=== PATIENT | male | born 1955 | race Caucasian/White ===

== ENCOUNTER 2024-02-22 12:07 | Inpatient (IN) ==
--- NOTE | 2024-02-22 12:49 | DR.ABDMALE ---
HPI Time seen Time Seen by Provider: 02/22/24 12:47 PCP Primary Care Physician: Kishor Isidro Complaint Chief Complaint Doctors Comments: 68-year-old male brought in for evaluation. Has been feeling poorly over the past few weeks. Complains of difficulty with eating. Eats a bit, has abdominal bloating and fullness. Develops pressure- like pain. Has been eating/drinking less.. Per son, patient coming more confused. No reported fever, chills, URI symptoms. Has not been moving his bowels as usual, having some loose stools which are dark. No urinary complaints. 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 Had a colostomy, was reversed. Has not seen a physician in a long time. States he drinks 1 beer per day. Chief Complaint:: Pt c/o "sick for couple weeks", "can't remember nothing", drinking boost and water, dark and watery BM for a couple weeks "almost a black color", thinks he is dehydrated, not eating well d/t bloating and abdominal pain pt describes as "bloating and pressure" after eating pain is worse. Has hx of colorectal tumors w/ removal, colostomy placemnt and reversal of colostomy approx 5 years ago Self Treatment fo Chief Complaint: pepto and GasX help temporarily COVID-19 Coronavirus risk:travel/contact w/high risk person: No Has patient experienced Coronavirus symptoms: No Reviewed Nurses Notes Review: Yes Source History provided by:: Patient, son Mode of arrival Mode of Arrival: Ambulatory Timing Onset of Chief Complaint: 02/02/24 PMH PMH Past Medical History: Yes Past Medical History: Anemia Past Medical History Comment: emphysema, colon tumor Past Surgical History: Yes Surgical History: Abdominal Surgery, Bowel Resection and Other Past Surgical History Comment: cataract Family History History of Family Medical Conditions: Yes Family Medical History: Cancer and Coronary Artery Disease Social History Type of Tobacco Use: Smokeless Does any household member use tobacco: No Alcohol Use: DAILY Do you use any recreational Drugs:: No Lives With: Alone Lives Where: Home Travel Risk Coronavirus risk:travel/contact w/high risk person: No Has patient experienced Coronavirus symptoms: No Infectious screening In the last 2 months have you had wt loss of >10#?: NO Have you had fever, night sweats or hemotysis?: No Have you traveled outside the country in the last 6 months?: No Isolation: Standard ROS Review of Systems Constitutional: Malaise, Weakness and Loss of Appetite Eyes: No Symptoms Reported ENTM: No Symptoms Reported Respiratoy: No Symptoms Reported Cardiovascular: No Symptoms Reported Gastrointestinal/Abdominal: See HPI Genitourinary: No Symptoms Reported Neurological: Weakness Musculoskeletal: No Symptoms Reported Integumentary: No Symptoms Reported Hematologic/Lymphatic: No Symptoms Reported All Other Systems: Reviewed and Negative PE Vital Signs Vital Signs: Temp Pulse Resp BP Pulse Ox O2 Del Method 02/22/24 17:47 20 02/22/24 12:08 97.9 F 124 H 18 118/82 95 Room Air General General Appearance: Alert, In No Apparent Distress and Cachectic Head Head Exam: Normal Inspection, Atraumatic and Normocephalic Eyes Eye exam: PERRL and EOMI ENT ENT Exam: Normal Oropharynx, Mucous Membranes Moist and TM's Normal Bilaterally Neck Neck Exam: Normal Inspection and Full ROM; negative Tenderness Respiratory Respiratory Exam: Normal Lung Sounds Bilat; negative Accessory Muscle Use or Respiratory Distress Cardiovascular Cardiovascular Exam: Regular Rate, Normal Rhythm and Normal Heart Sounds Abdominal Exam Abdominal Exam: Normal Bowel Sounds and Soft; negative Tenderness, Guarding or Rebound Back Back Exam: Normal Inspection; negative (R) CVA Tenderness or (L) CVA Tenderness Extremeties Extremities Exam: Normal Inspection and Full ROM; negative Edema Neurologic Neurological Exam: Alert, Oriented X3 and CN II-XII Intact; negative Motor Sensory Deficit Skin Skin Exam: Warm and Dry COURSE Treatment Treatment: 60-year-old male with few weeks of abdominal discomfort with eating, having more bloating and pressure-like sensation. Appears cachectic. Is tachycardic. Workup initiated. Patient given IV fluids. 1700 -labs overall acceptable except for his potassium, is low at 2.8. PSA slightly elevated at 4.3. Chest x-ray was unremarkable. Brain CT showed atrophy, but no acute changes. CT abdomen pelvis obtained, significantly abnormal. Has severe colonic distention with a likely intraluminal mass of the rectosigmoid region extending to the lower rectum. Colonic obstruction from neoplasm is most likely etiology. Consulted with Dr. Ramon, our surgeon, coming to see the patient.. Discussed with Dr. De La Cruz, he will admit for medicine. ROR Labs Reviewed Laboratory Results Reviewed?: Yes 02/22/24 13:20 02/22/24 13:20 Laboratory: WBC 6.7 X10^3/uL (3.6-10.0) 02/22/24 13:20 RBC 5.32 X10^6/uL (4.7-6.0) 02/22/24 13:20 Hgb 15.4 g/dL (13.5-18.0) 02/22/24 13:20 Hct 47.0 % (42.0-54.0) 02/22/24 13:20 MCV 88.2 fL (80.0-100.0) 02/22/24 13:20 MCH 28.9 pg (27.0-34.0) 02/22/24 13:20 MCHC 32.7 g/dL (33.0-35.0) L 02/22/24 13:20 RDW 20.0 % (11.6-16.5) H 02/22/24 13:20 Plt Count 259 X10^3/uL (150.0-450.0) 02/22/24 13:20 MPV 7.7 fL (7.4-11.0) 02/22/24 13:20 Neut % (Auto) 74.7 % (42.0-75.0) 02/22/24 13:20 Lymph % (Auto) 16.2 % (21.0-51.0) L 02/22/24 13:20 [place] % (Auto) 7.4 % (0.0-13.0) 02/22/24 13:20 Eos % (Auto) 0.9 % (0.9-2.9) 02/22/24 13:20 Baso % (Auto) 0.8 % (0.2-1.0) 02/22/24 13:20 Neut # (Auto) 5.0 x10^3/uL (2.2-4.8) H 02/22/24 13:20 Lymph # (Auto) 1.1 X10^3/uL (1.3-2.9) L 02/22/24 13:20 [place] # (Auto) 0.5 x10^3/uL (0.3-0.8) 02/22/24 13:20 Eos # (Auto) 0.1 x10^3/uL (0.0-0.2) 02/22/24 13:20 Baso # (Auto) 0.1 X10^3/uL (0.0-0.1) 02/22/24 13:20 Absolute Nucleated RBC 0.0 /100WBC 02/22/24 13:20 Sodium 133 mmol/L (136-145) L 02/22/24 13:20 Corrected Sodium TNP 02/22/24 13:20 Potassium 2.8 mmol/L (3.5-5.1) L* 02/22/24 13:20 Chloride 94 mmol/L (98-107) L 02/22/24 13:20 Carbon Dioxide 31.5 mmol/L (21-32) 02/22/24 13:20 BUN 7 mg/dL (7-18) 02/22/24 13:20 Creatinine 0.69 mg/dL (0.70-1.30) L 02/22/24 13:20 Est GFR (MDRD) Af Amer > 60 (>60) 02/22/24 13:20 Est GFR (MDRD) Non-Af > 60 (>60) 02/22/24 13:20 Glucose 94 mg/dL (65-99) 02/22/24 13:20 Calcium 8.9 mg/dL (8.5-10.1) 02/22/24 13:20 Corrected Calcium 9.9 mg/dL (8.5-10.1) 02/22/24 13:20 Total Bilirubin 0.80 mg/dL (0.2-1.0) 02/22/24 13:20 AST 17 Units/L (15-37) 02/22/24 13:20 ALT 15 Units/L (12-78) 02/22/24 13:20 Alkaline Phosphatase 66 Units/L (46-116) 02/22/24 13:20 Ammonia < 10 umol/L (11-32) L 02/22/24 13:20 Creatine Kinase 25 Units/L (39-308) L 02/22/24 13:20 Total Protein 6.7 g/dL (6.4-8.2) 02/22/24 13:20 Albumin 2.7 g/dL (3.4-5.0) L 02/22/24 13:20 Globulin 4.0 g/dL (2.5-4.5) 02/22/24 13:20 Albumin/Globulin Ratio 0.7 Ratio (1.1-2.1) L 02/22/24 13:20 Amylase 215 Units/L (25-115) H 02/22/24 13:20 Lipase 79 Units/L (16-77) H 02/22/24 13:20 Total PSA 4.30 ng/mL (0.13-4.0) H 02/22/24 13:20 TSH 3rd Generation 2.182 uIU/mL (0.358-3.74) 02/22/24 13:20 Potassium low at 2.8 XRAY XRAY Interpreted by: Both X-ray Results: EXAM: CT ABDOMEN AND PELVIS WITH CONTRAST HISTORY: abd pain, worse with eating - IV only; COMPARISON: None. TECHNIQUE: Axial CT images were obtained through the abdomen and pelvis after the intravenous administration of contrast. Coronal reformatted images were included. Informed written consent was obtained prior to contrast administration. All CT scans at this facility use dose modulation, iterative reconstruction, and/or weight based dosing when appropriate to reduce radiation dose to as low as reasonably achievable. FINDINGS: LOWER THORAX: Within normal limits. ABDOMEN: LIVER: Right hepatic lobe atrophy GALLBLADDER: Absent SPLEEN: Within normal limits. PANCREAS: Within normal limits. KIDNEYS: Within normal limits. ADRENAL GLANDS: Within normal limits. GI TRACT: Severe colonic distention noted. Maximum diameter of the sigmoid colon is 8.4 cm. In the distal sigmoid colon, polypoid intraluminal mass is suspected which may be the etiology of the colonic obstruction measuring at least 6.7 x 6.3 cm. Soft tissue thickening and mass extends into the rectum and anal region. There is a right lower quadrant hernia containing loop of small bowel LYMPH NODES: No abnormally enlarged nodes. VESSELS: Within normal limits. PERITONEUM / RETROPERITONEUM: No free gas. PELVIS: BLADDER: Within normal limits. GENITALS: Within normal limits. BONES: Within normal limits. IMPRESSION: Severe colonic distention with large amount of colonic stool. The colon measures up to 8.4 cm maximally. Likely intraluminal mass of the rectosigmoid region extending into the lower rectum. Correlation with endoscopy is ultimately suggested. Colonic obstruction from neoplasm is the most likely etiology. THIS IS AN ELECTRONICALLY VERIFIED FINAL REPORT 02/22/2024 5:06 PM - Electronically signed by Bret Stephenson MD Opioid Opioid Risk Tool Age ([place] box if 16-45): No History of Preadolescent Sexual Abuse: No Total: 0 Total Score Risk Category: Low Risk Copyright: Yury JACKSON predicting aberrant behaviors Discharge Plan Diagnosis Discharge Problem: Colonic mass, Colonic obstruction, Acute hypokalemia Discharge Plan Patient Disposition: 09 ADMITTED INPATIENT Condition: Stable Prescriptions: No Action [facility] Concerns: Post Hospitalization: new medications and changes needed to prevent readmission or further decline. Pt educated and given instructions on all concerns. Plan of Treatment: Continue with present treatment and follow up plan. Pt is to keep follow up appointment as instructed and take medications as ordered. Orders to Discharge Patient Discharge Orders: Transfer (Routine); Ordered 02/22/24 Ordered By: Kelvin Montague Follow ups/Referrals Follow ups/Referrals: [facility],None [Primary Care Provider] - 3 days
--- NOTE | 2024-02-22 13:24 | CT ---
EXAMINATION: BRAIN W/O CON HISTORY: CONFUSION ; COMPARISON: None. TECHNIQUE: Contiguous noncontrast axial CT images of the brain. Images are reviewed in the axial imaging plane with reformatted sagittal and coronal images.The above CT scan was done with automated exposure contr ol and the mA and kV was adjusted to obtain quality images according to patient size. FINDINGS: No evidence of acute intracranial hemorrhage, mass effect, or midline shift. Generalized decreased d ensity to the deep white matter adjacent to the lateral ventricles and centrum semiovale regions bila terally without associated mass effect. Consider chronic ischemic white matter changes from small ve ssel disease or other cause of gliosis. Moderate diffuse brain parenchyma atrophy. Ventricles ana l size and shape. Calvarium appears intact. IMPRESSION: Probable chronic brain parenchymal changes as described above. Recommend further evaluation with an MRI of the brain if this is of continued clinical concern. THIS IS AN ELECTRONICALLY VERIFIED FINAL REPORT 02/22/2024 1:21 PM - Electronically signed by Melissa Hanson MD
[2024-02-22] MEDS: NS 1,000 ML IV 1,000 ML IV ONE (13:31)
[2024-02-22 13:32] LABS: BASOPHILS # (AUTO) 0.1 X10^3/uL (0.0-0.1); BASOPHILS % (AUTO) 0.8 % (0.2-1.0); EOSINOPHILS # (AUTO) 0.1 x10^3/uL (0.0-0.2); EOSINOPHILS % (AUTO) 0.9 % (0.9-2.9); HEMOGLOBIN 15.4 g/dL (13.5-18.0); LYMPHOCYTES # (AUTO) 1.1 X10^3/uL (1.3-2.9); LYMPHOCYTES % (AUTO) 16.2 % (21.0-51.0); MEAN CORPUSCULAR HEMOGLOBIN 28.9 pg (27.0-34.0); MEAN CORPUSCULAR HGB CONC 32.7 g/dL (33.0-35.0); MEAN CORPUSCULAR VOLUME 88.2 fL (80.0-100.0); MEAN PLATELET VOLUME 7.7 fL (7.4-11.0); MONOCYTES # (AUTO) 0.5 x10^3/uL (0.3-0.8); MONOCYTES % (AUTO) 7.4 % (0.0-13.0); NEUTROPHILS % (AUTO) 74.7 % (42.0-75.0); PLATELET COUNT 259 X10^3/uL (150.0-450.0); RED BLOOD COUNT 5.32 X10^6/uL (4.7-6.0); WHITE BLOOD COUNT 6.7 X10^3/uL (3.6-10.0)
[2024-02-22 13:59] LABS: AMMONIA < 10 umol/L (11-32)
[2024-02-22 14:06] LABS: ALANINE AMINOTRANSFERASE 15 Units/L (12-78); ALBUMIN 2.7 g/dL (3.4-5.0); ALKALINE PHOSPHATASE 66 Units/L (46-116); AMYLASE 215 Units/L (25-115); ASPARTATE AMINO TRANSFERASE 17 Units/L (15-37); BLOOD UREA NITROGEN 7 mg/dL (7-18); CALCIUM 8.9 mg/dL (8.5-10.1); CARBON DIOXIDE 31.5 mmol/L (21-32); CHLORIDE 94 mmol/L (98-107); COR CA(FOR HYPOALB) 9.9 mg/dL (8.5-10.1); CREATINE KINASE 25 Units/L (39-308); CREATININE 0.69 mg/dL (0.70-1.30); GLUCOSE 94 mg/dL (65-99); LIPASE 79 Units/L (16-77); SODIUM 133 mmol/L (136-145); TOTAL PROTEIN 6.7 g/dL (6.4-8.2); TSH (3RD GENERATION) 2.182 uIU/mL (0.358-3.74); eGFR NON BLACK RACES > 60 (>60)
[2024-02-22 14:16] LABS: POTASSIUM 2.8 mmol/L (3.5-5.1)
--- NOTE | 2024-02-22 14:36 | RAD ---
EXAM:CHEST, 1 VIEWHISTORY:ABD PAIN ;COMPARISON:No relevant prior studies were available for comparison at the time of interpretation.TECHNIQUE:CHEST, 1 VIEWFINDINGS:Chest:Lines and tubes: NoneMediastinum: Cardiac and mediastinal shadow is within normal limits for size and contour.Pulmonary vessels: No pulmonary vascular congestion.Lung logan: No suspicious airspace opacity.Pleura: No effusion. No pneumothorax.Bones and soft tissues: No acute osseous or soft tissue abnormality.IMPRESSION:1. No acute cardiopulmonary abnormalityTHIS IS AN ELECTRONICALLY VERIFIED FINAL REPORT02/22/2024 2:33 PM - Electronically signed by Kishor Lowry MD
[2024-02-22] MEDS: K-RIDER 10 MEQ/100 ML WATER 10 MEQ/100 ML BAG IV ONE (15:15)
--- NOTE | 2024-02-22 17:18 | CT ---
EXAM:CT ABDOMEN AND PELVIS WITH CONTRASTHISTORY:abd pain, worse with eating - IV only;COMPARISON:None.TECHNIQUE:Axial CT images were obtained through the abdomen and pelvis after the intravenous administration of contrast. Coronal reformatted images were included.Informed written consent was obtained prior to contrast administration.All CT scans at this facility use dose modulation, iterative reconstruction, and/or weight based dosing when appropriate to reduce radiation dose to as low as reasonably achievable.FINDINGS:LOWER THORAX: Within normal limits.ABDOMEN:LIVER: Right hepatic lobe atrophyGALLBLADDER: AbsentSPLEEN: Within normal limits.PANCREAS: Within normal limits.KIDNEYS: Within normal limits.ADRENAL GLANDS: Within normal limits.GI TRACT: Severe colonic distention noted. Maximum diameter of the sigmoid colon is 8.4 cm. In the distal sigmoid colon, polypoid intraluminal mass is suspected which may be the etiology of the colonic obstruction measuring at least 6.7 x 6.3 cm. Soft tissue thickening and mass extends into the rectum and anal region. There is a right lower quadrant hernia containing loop of small bowelLYMPH NODES: No abnormally enlarged nodes.VESSELS: Within normal limits.PERITONEUM / RETROPERITONEUM: No free gas.PELVIS:BLADDER: Within normal limits.GENITALS: Within normal limits.BONES: Within normal limits.IMPRESSION:Severe colonic distention with large amount of colonic stool. The colon measures up to 8.4 cm maximally. Likely intraluminal mass of the rectosigmoid region extending into the lower rectum. Correlation with endoscopy is ultimately suggested. Colonic obstruction from neoplasm is the most likely etiology.THIS IS AN ELECTRONICALLY VERIFIED FINAL REPORT02/22/2024 5:06 PM - Electronically signed by Bret Stephenson MD
[2024-02-22] MEDS: D5 1/2 NS + KCL 20 MEQ/L 1,000 ML IV SCH (20:19)
[2024-02-22] MEDS: OMNIPAQUE 350 mg/mL 100 mL BTL 100 ML ONE (22:03)
[2024-02-22] MEDS: POTASSIUM CHLORIDE IV SCH (22:03)
[2024-02-22] MEDS: SODIUM CHLORIDE IV SCH (22:03)
[2024-02-22] MEDS: DEXTROSE IV SCH (22:03)
[2024-02-22] MEDS: CONSULT PHARMACY - POTASSIUM & MAGNESIUM XX SCH (22:04)
[2024-02-22 22:23] LABS: BILIRUBIN,URINE NEGATIVE (NEGATIVE); BLOOD/HEMOGLOBIN,URINE NEGATIVE (NEGATIVE); GLUCOSE, URINE NEGATIVE (NEGATIVE); KETONES,URINE 3+ (NEGATIVE); LEUKOCYTE ESTERASE ,URINE NEGATIVE (NEGATIVE); NITRITES,URINE NEGATIVE (NEGATIVE); PH,URINE 6.5 (5.0 - 8.0); PROTEIN,URINE 1+ (NEGATIVE); UROBILINOGEN,URINE NORMAL (NORMAL)
[2024-02-22 22:26] LABS: APPEARANCE,URINE CLEAR (CLEAR); COLOR,URINE YELLOW (YELLOW)
[2024-02-22 22:30] LABS: BACTERIA,URINE TRACE /HPF (NEGATIVE); SQUAMOUS EPITHELIAL CELL,UR RARE /HPF (NEGATIVE)
[2024-02-23 05:14] LABS: BASOPHILS # (AUTO) 0.1 X10^3/uL (0.0-0.1); BASOPHILS % (AUTO) 0.8 % (0.2-1.0); EOSINOPHILS # (AUTO) 0.1 x10^3/uL (0.0-0.2); EOSINOPHILS % (AUTO) 1.9 % (0.9-2.9); HEMATOCRIT 40.8 % (42.0-54.0); HEMOGLOBIN 13.8 g/dL (13.5-18.0); LYMPHOCYTES # (AUTO) 1.5 X10^3/uL (1.3-2.9); LYMPHOCYTES % (AUTO) 23.9 % (21.0-51.0); MEAN CORPUSCULAR HEMOGLOBIN 29.4 pg (27.0-34.0); MEAN CORPUSCULAR HGB CONC 33.9 g/dL (33.0-35.0); MEAN CORPUSCULAR VOLUME 86.7 fL (80.0-100.0); MEAN PLATELET VOLUME 8.3 fL (7.4-11.0); MONOCYTES # (AUTO) 0.6 x10^3/uL (0.3-0.8); NEUTROPHILS # (AUTO) 4.1 x10^3/uL (2.2-4.8); NEUTROPHILS % (AUTO) 64.4 % (42.0-75.0); PLATELET COUNT 244 X10^3/uL (150.0-450.0); RED BLOOD COUNT 4.71 X10^6/uL (4.7-6.0); RED CELL DISTRIBUTION WIDTH 20.1 % (11.6-16.5); WHITE BLOOD COUNT 6.3 X10^3/uL (3.6-10.0)
[2024-02-23 05:27] LABS: ALANINE AMINOTRANSFERASE 14 Units/L (12-78); ALBUMIN 2.2 g/dL (3.4-5.0); ALKALINE PHOSPHATASE 56 Units/L (46-116); ASPARTATE AMINO TRANSFERASE 15 Units/L (15-37); BLOOD UREA NITROGEN 5 mg/dL (7-18); CALCIUM 8.3 mg/dL (8.5-10.1); CARBON DIOXIDE 26.6 mmol/L (21-32); CHLORIDE 98 mmol/L (98-107); COR CA(FOR HYPOALB) 9.7 mg/dL (8.5-10.1); CREATININE 0.54 mg/dL (0.70-1.30); GLUCOSE 102 mg/dL (65-99); SODIUM 133 mmol/L (136-145); TOTAL PROTEIN 5.7 g/dL (6.4-8.2); eGFR NON BLACK RACES > 60 (>60)
[2024-02-23 05:31] LABS: POTASSIUM 2.9 mmol/L (3.5-5.1)
[2024-02-23 05:54] LABS: ANISOCYTOSIS 1+; PLATELET MORPHOLOGY COMMENT NORMAL (NORMAL)
[2024-02-23] MEDS ORDERED: K-RIDER 10 MEQ/100 ML WATER 10 MEQ/100 ML BAG IV SCH (08:00)
[2024-02-23] MEDS ORDERED: MAGNESIUM SULFATE 1 GRAM/100 mL PREMIX 1 G/100 ML BAG IV SCH ×2 (09:00→10:00)
[2024-02-23] MEDS: K-DUR TAB 20 MEQ PO SCH (09:25)
[2024-02-23] MEDS: LOVENOX INJ 40 MG SYR SC SCH (09:26)
[2024-02-23] MEDS: NS + KCL 40 MEQ/L 1,000 ML with MAGNESIUM SULFATE 50% INJ VIAL 2 G IV SCH (09:26)
[2024-02-23] MEDS: MAGNESIUM SULFATE 1 GRAM/100 mL PREMIX 1 G/100 ML BAG IV SCH (10:02)
[2024-02-23] MEDS: FLEET ENEMA ADULT PR ONE (11:19)
[2024-02-23] MEDS: LR 1,000 ML IV 1,000 ML IV ONE (14:13)
[2024-02-23] MEDS: DIPRIVAN VIAL 20 ML ONE (14:22)
--- NOTE | 2024-02-23 16:45 | RAD ---
EXAM:KUB x-ray one viewHISTORY:ABDOMINAL DISTENTION -COMPARISON:CT 02/22/2024FINDINGS:Diffuse gaseous dilation of small and large bowel loops is unchanged. This is probably from obstructing mass in the rectum seen on the CT. Excreted contrast is seen in the urinary bladder.IMPRESSION:Diffuse small and large bowel dilation is probably due to obstruction from mass in the rectum.THIS IS AN ELECTRONICALLY VERIFIED FINAL REPORT02/23/2024 4:42 PM - Electronically signed by Darius Finch MD
[2024-02-24] MEDS: CONSULT PHARMACY - POTASSIUM & MAGNESIUM XX SCH (01:16)
[2024-02-24] MEDS: MAGNESIUM SULFATE 1 GRAM/100 mL PREMIX 1 G/100 ML BAG IV SCH (01:16)
[2024-02-24] MEDS ORDERED: ZOFRAN INJ 4 MG VIAL IVP PRN ×2 (02:21→11:06)
[2024-02-24 05:08] LABS: ALANINE AMINOTRANSFERASE 16 Units/L (12-78); ALBUMIN 2.3 g/dL (3.4-5.0); ALKALINE PHOSPHATASE 64 Units/L (46-116); ASPARTATE AMINO TRANSFERASE 19 Units/L (15-37); BLOOD UREA NITROGEN 7 mg/dL (7-18); CARBON DIOXIDE 26.7 mmol/L (21-32); CHLORIDE 102 mmol/L (98-107); COR CA(FOR HYPOALB) 9.4 mg/dL (8.5-10.1); CREATININE 0.63 mg/dL (0.70-1.30); GLUCOSE 90 mg/dL (65-99); MAGNESIUM 2.6 mg/dL (2.0-2.9); POTASSIUM 4.7 mmol/L (3.5-5.1); SODIUM 135 mmol/L (136-145); TOTAL PROTEIN 6.1 g/dL (6.4-8.2); eGFR NON BLACK RACES > 60 (>60)
[2024-02-24 05:40] LABS: HEMOGLOBIN 15.1 g/dL (13.5-18.0); MEAN PLATELET VOLUME 8.6 fL (7.4-11.0); RED CELL DISTRIBUTION WIDTH 20.4 % (11.6-16.5); WHITE BLOOD COUNT 4.3 X10^3/uL (3.6-10.0)
[2024-02-24 05:46] LABS: BASOPHILS % (AUTO) 0.3 % (0.2-1.0); EOSINOPHILS % (AUTO) 0.4 % (0.9-2.9); HEMATOCRIT 45.9 % (42.0-54.0); LYMPHOCYTES # (AUTO) 1.2 X10^3/uL (1.3-2.9); LYMPHOCYTES % (AUTO) 27.4 % (21.0-51.0); MEAN CORPUSCULAR HEMOGLOBIN 29.1 pg (27.0-34.0); MEAN CORPUSCULAR HGB CONC 32.9 g/dL (33.0-35.0); MEAN CORPUSCULAR VOLUME 88.6 fL (80.0-100.0); MONOCYTES # (AUTO) 0.4 x10^3/uL (0.3-0.8); MONOCYTES % (AUTO) 10.3 % (0.0-13.0); NEUTROPHILS # (AUTO) 2.7 x10^3/uL (2.2-4.8); NEUTROPHILS % (AUTO) 61.6 % (42.0-75.0); PLATELET COUNT 289 X10^3/uL (150.0-450.0); RED BLOOD COUNT 5.18 X10^6/uL (4.7-6.0)
[2024-02-24 06:37] LABS: ANISOCYTOSIS 1+; PLATELET MORPHOLOGY COMMENT NORMAL (NORMAL)
--- NOTE | 2024-02-24 08:47 | RAD ---
EXAMINATION: KUB HISTORY: bowel obstruction; . COMPARISON STUDY: KUB 02/23/2024 TECHNIQUE: Single supine AP view of the abdomen and pelvis FINDINGS: Marked gaseous distention of the colon as has been previously described. The visualized soft tissue outlines and osseous structures appear intact. IMPRESSION: Persistent marked gaseous distention of the colon THIS IS AN ELECTRONICALLY VERIFIED FINAL REPORT 02/24/2024 8:44 AM - Electronically signed by Melissa Hanson MD
[2024-02-24] MEDS: ZEMURON 100 MG VIAL ONE (09:26)
[2024-02-24] MEDS: DECADRON INJ ONE (09:26)
[2024-02-24] MEDS: PEPCID 20 MG VIAL ONE (09:26)
[2024-02-24] MEDS: AMIDATE INJ 40 MG VIAL ONE (09:26)
[2024-02-24] MEDS: BRIDION ONE (09:26)
[2024-02-24] MEDS: ZOFRAN INJ 4 MG VIAL ONE (09:26)
[2024-02-24] MEDS: DIPRIVAN VIAL 20 ML ONE (09:26)
[2024-02-24] MEDS: NS 100 ML IV 100 ML ONE (09:32)
[2024-02-24] MEDS: LR 1,000 ML IV 1,000 ML IV ONE (09:32)
[2024-02-24] MEDS: NOZIN NASAL SANITIZER TP ONE (09:32)
--- NOTE | 2024-02-24 09:35 | EKG ---
Test Reason : pt in pacu Blood Pressure : */* mmHG Vent. Rate : 100 BPM Atrial Rate : 100 BPM P-R Int : 132 ms QRS Dur : 74 ms QT Int : 370 ms P-R-T Axes : 68 54 32 degrees QTc Int : 477 ms Normal sinus rhythm Septal infarct , age undetermined Abnormal ECG No previous ECGs available Confirmed by Boris Esquivel MD ([id number]) on 02/25/2024 8:14:31 AM Referred By: Confirmed By: Boris Esquivel MD
[2024-02-24] MEDS: FENTANYL VIAL INJ 100 mcg ONE (09:36)
[2024-02-24] MEDS: VERSED ONE (09:36)
[2024-02-24] MEDS: POLYMYXIN B SULFATE ONE (09:43)
[2024-02-24] MEDS: ANCEF VIAL 1 GRAM ONE (09:45)
[2024-02-24] MEDS ORDERED: ULTANE GAS IN ONE (09:56)
[2024-02-24] MEDS ORDERED: XYLOCAINE 2 % (PLAIN) ONE (09:56)
[2024-02-24] MEDS: KETAMINE HCL ONE (10:07)
[2024-02-24] MEDS: NEO-SYNEPHRINE INJ ONE (10:15)
[2024-02-24] MEDS: BREVIBLOC ONE (10:47)
[2024-02-24] MEDS ORDERED: BENADRYL INJ 50 MG VIAL IVP PRN (11:06)
[2024-02-24] MEDS ORDERED: DILAUDID INJ IVP PRN ×2 (11:06→12:04)
[2024-02-24] MEDS: HESPAN IV IN NS 500 ML IV ONE (11:07)
[2024-02-24 12:43] VITALS: BMI 16.6
--- NOTE | 2024-02-24 12:44 | PCM.PROG ---
Progress Note Progress Note for Day of Date of Exam: 02/24/24 Subjective Subjective: Patient is a 68-year-old male admitted for large bowel obstruction with mass in the rectosigmoid. This morning he is getting ready for surgery. No acute events overnight. Labs/imaging: WBC 4.3, hemoglobin 15.1, platelets 289, sodium 135, potassium 2.94.7, creatinine 0.63, glucose 90, CEA pending,. Will keep patient NPO. Replete electrolytes per protocol. Plan for surgery today. Otherwise continue current treatment plan. Continue closely monitor and follow-up labs/imaging. Past Medical Family Social History Past Med/Fam/Surg Hx: No changes since H&P Allergies: Allergies No Known Drug Allergies Allergy (Verified 02/22/24 17:09) Review of Systems ROS changes noted: see HPI Vital Signs and I&O's Vital Signs: Vital Signs Temperature 97 F Pulse Rate 92 Pulse Rate 92 Pulse Rate 92 Pulse Rate 87 Pulse Rate 100 Pulse Rate 93 Pulse Rate 97 Pulse Rate 103 Pulse Rate 97 Pulse Rate 100 Pulse Rate 99 Pulse Rate 100 Pulse Rate 100 Pulse Rate 106 Pulse Rate 114 Pulse Rate 103 Pulse Rate 101 Pulse Rate 108 Pulse Rate 100 Pulse Rate 100 Pulse Rate 99 Respiratory Rate 16 Respiratory Rate 17 Respiratory Rate 18 Respiratory Rate 18 Respiratory Rate 18 Respiratory Rate 16 Respiratory Rate 16 Respiratory Rate 24 Respiratory Rate 16 Respiratory Rate 17 Respiratory Rate 17 Respiratory Rate 17 Respiratory Rate 17 Respiratory Rate 27 Respiratory Rate 59 Respiratory Rate 21 Respiratory Rate 18 Respiratory Rate 23 Respiratory Rate 17 Respiratory Rate 18 Respiratory Rate 19 Blood Pressure 137/79 Blood Pressure 138/80 Blood Pressure 137/79 Blood Pressure 138/79 Blood Pressure 131/76 Blood Pressure 131/79 Blood Pressure 140/75 O2 Sat by Pulse Oximetry 99 O2 Sat by Pulse Oximetry 99 O2 Sat by Pulse Oximetry 100 O2 Sat by Pulse Oximetry 100 O2 Sat by Pulse Oximetry 100 O2 Sat by Pulse Oximetry 100 O2 Sat by Pulse Oximetry 100 O2 Sat by Pulse Oximetry 97 O2 Sat by Pulse Oximetry 96 O2 Sat by Pulse Oximetry 96 O2 Sat by Pulse Oximetry 95 O2 Sat by Pulse Oximetry 96 O2 Sat by Pulse Oximetry 96 O2 Sat by Pulse Oximetry 97 O2 Sat by Pulse Oximetry 95 O2 Sat by Pulse Oximetry 96 O2 Sat by Pulse Oximetry 95 O2 Sat by Pulse Oximetry 96 O2 Sat by Pulse Oximetry 96 O2 Sat by Pulse Oximetry 96 O2 Sat by Pulse Oximetry 96 Intake and Output: Intake & Output 02/21/24 02/22/24 02/23/24 02/24/24 23:59 23:59 23:59 23:59 Intake Total 1293 / 1293 2653 / 2653 4561 / 4561 Output Total 300 / 300 750 / 750 2409 / 2409 Balance 993 / 993 1903 / 1903 2152 / 2152 Physical Exam Oriented: Normal Respiratory: Normal Cardiovascular: Normal Auscultation: Bowel Sounds: Normal Tenderness: RLQ and LLQ Skin: Normal Musculoskeletal: Normal Mood Description: Calm Speech Pattern: Clear Laboratory and Diagnostics 02/24/24 04:01 02/24/24 04:01 Labs: Laboratory WBC 4.3 X10^3/uL (3.6-10.0) 02/24/24 04:01 RBC 5.18 X10^6/uL (4.7-6.0) 02/24/24 04:01 Hgb 15.1 g/dL (13.5-18.0) 02/24/24 04:01 Hct 45.9 % (42.0-54.0) 02/24/24 04:01 MCV 88.6 fL (80.0-100.0) 02/24/24 04:01 MCH 29.1 pg (27.0-34.0) 02/24/24 04:01 MCHC 32.9 g/dL (33.0-35.0) L 02/24/24 04:01 RDW 20.4 % (11.6-16.5) H 02/24/24 04:01 Plt Count 289 X10^3/uL (150.0-450.0) 02/24/24 04:01 Plt Count Comment Adequate (ADEQUATE) 02/24/24 04:01 MPV 8.6 fL (7.4-11.0) 02/24/24 04:01 Neut % (Auto) 61.6 % (42.0-75.0) 02/24/24 04:01 Lymph % (Auto) 27.4 % (21.0-51.0) 02/24/24 04:01 [place] % (Auto) 10.3 % (0.0-13.0) 02/24/24 04:01 Eos % (Auto) 0.4 % (0.9-2.9) L 02/24/24 04:01 Baso % (Auto) 0.3 % (0.2-1.0) 02/24/24 04:01 Neut # (Auto) 2.7 x10^3/uL (2.2-4.8) 02/24/24 04:01 Lymph # (Auto) 1.2 X10^3/uL (1.3-2.9) L 02/24/24 04:01 [place] # (Auto) 0.4 x10^3/uL (0.3-0.8) 02/24/24 04:01 Eos # (Auto) 0.0 x10^3/uL (0.0-0.2) 02/24/24 04:01 Baso # (Auto) 0.0 X10^3/uL (0.0-0.1) 02/24/24 04:01 Absolute Nucleated RBC 0.1 /100WBC 02/24/24 04:01 Plt Morphology Comment Normal (NORMAL) 02/24/24 04:01 RBC Morphology Abnormal (NORMAL) 02/24/24 04:01 Anisocytosis 1+ A 02/24/24 04:01 Sodium 135 mmol/L (136-145) L 02/24/24 04:01 Corrected Sodium TNP 02/24/24 04:01 Potassium 4.7 mmol/L (3.5-5.1) 02/24/24 04:01 Chloride 102 mmol/L (98-107) 02/24/24 04:01 Carbon Dioxide 26.7 mmol/L (21-32) 02/24/24 04:01 BUN 7 mg/dL (7-18) 02/24/24 04:01 Creatinine 0.63 mg/dL (0.70-1.30) L 02/24/24 04:01 Est GFR (MDRD) Af Amer > 60 (>60) 02/24/24 04:01 Est GFR (MDRD) Non-Af > 60 (>60) 02/24/24 04:01 Glucose 90 mg/dL (65-99) 02/24/24 04:01 Calcium 8.0 mg/dL (8.5-10.1) L 02/24/24 04:01 Corrected Calcium 9.4 mg/dL (8.5-10.1) 02/24/24 04:01 Magnesium 2.6 mg/dL (2.0-2.9) 02/24/24 04:01 Total Bilirubin 0.70 mg/dL (0.2-1.0) 02/24/24 04:01 AST 19 Units/L (15-37) 02/24/24 04:01 ALT 16 Units/L (12-78) 02/24/24 04:01 Alkaline Phosphatase 64 Units/L (46-116) 02/24/24 04:01 Ammonia < 10 umol/L (11-32) L 02/22/24 13:20 Creatine Kinase 25 Units/L (39-308) L 02/22/24 13:20 Total Protein 6.1 g/dL (6.4-8.2) L 02/24/24 04:01 Albumin 2.3 g/dL (3.4-5.0) L 02/24/24 04:01 Globulin 3.8 g/dL (2.5-4.5) 02/24/24 04:01 Albumin/Globulin Ratio 0.6 Ratio (1.1-2.1) L 02/24/24 04:01 Amylase 215 Units/L (25-115) H 02/22/24 13:20 Lipase 79 Units/L (16-77) H 02/22/24 13:20 Total PSA 4.30 ng/mL (0.13-4.0) H 02/22/24 13:20 TSH 3rd Generation 2.182 uIU/mL (0.358-3.74) 02/22/24 13:20 Specimen Type Clean catch urine 02/22/24 22:11 Urine Color Yellow (YELLOW) 02/22/24 22:11 Urine Appearance Clear (CLEAR) 02/22/24 22:11 Urine pH 6.5 (5.0 - 8.0) 02/22/24 22:11 Ur Specific [place] 1.010 (1.000-1.030) 02/22/24 22:11 Urine Protein 1+ (NEGATIVE) 02/22/24 22:11 Urine Glucose (UA) Negative (NEGATIVE) 02/22/24 22:11 Urine Ketones 3+ (NEGATIVE) 02/22/24 22:11 Urine Blood Negative (NEGATIVE) 02/22/24 22:11 Urine Nitrite Negative (NEGATIVE) 02/22/24 22:11 Urine Bilirubin Negative (NEGATIVE) 02/22/24 22:11 Urine Urobilinogen Normal (NORMAL) 02/22/24 22:11 Ur Leukocyte Esterase Negative (NEGATIVE) 02/22/24 22:11 Urine RBC 3-5 /HPF (0-3) A 02/22/24 22:11 Urine WBC 0-2 /HPF (0-5) 02/22/24 22:11 Ur Squamous Epith Cells Rare /HPF (NEGATIVE) 02/22/24 22:11 Amorphous Sediment Trace /HPF (NEGATIVE) 02/22/24 22:11 Urine Bacteria Trace /HPF (NEGATIVE) 02/22/24 22:11 Ur Culture Indicated? No/not indicated 02/22/24 22:11 Plan (1) Colonic mass: Status: Acute (2) Colonic obstruction: Status: Acute (3) Acute hypokalemia: Status: Acute
[2024-02-24] MEDS: D5 1/2 NS 1,000 ML 1,000 ML IV SCH (13:11)
[2024-02-24] MEDS ORDERED: NS IRRIGATION* 1,000 ML IR ONE (13:51)
[2024-02-25 05:04] LABS: BASOPHILS % (AUTO) 0.3 % (0.2-1.0); HEMOGLOBIN 12.4 g/dL (13.5-18.0); LYMPHOCYTES # (AUTO) 1.5 X10^3/uL (1.3-2.9); LYMPHOCYTES % (AUTO) 21.5 % (21.0-51.0); MEAN CORPUSCULAR HEMOGLOBIN 29.2 pg (27.0-34.0); MEAN CORPUSCULAR HGB CONC 33.7 g/dL (33.0-35.0); MEAN CORPUSCULAR VOLUME 86.6 fL (80.0-100.0); MEAN PLATELET VOLUME 8.2 fL (7.4-11.0); MONOCYTES # (AUTO) 0.6 x10^3/uL (0.3-0.8); MONOCYTES % (AUTO) 8.6 % (0.0-13.0); NEUTROPHILS # (AUTO) 4.9 x10^3/uL (2.2-4.8); NEUTROPHILS % (AUTO) 69.6 % (42.0-75.0); PLATELET COUNT 231 X10^3/uL (150.0-450.0); RED BLOOD COUNT 4.27 X10^6/uL (4.7-6.0); RED CELL DISTRIBUTION WIDTH 20.4 % (11.6-16.5); WHITE BLOOD COUNT 7.1 X10^3/uL (3.6-10.0)
[2024-02-25 05:15] LABS: ALANINE AMINOTRANSFERASE 11 Units/L (12-78); ALBUMIN 1.6 g/dL (3.4-5.0); ALKALINE PHOSPHATASE 48 Units/L (46-116); ASPARTATE AMINO TRANSFERASE 13 Units/L (15-37); BLOOD UREA NITROGEN 5 mg/dL (7-18); CALCIUM 7.3 mg/dL (8.5-10.1); CARBON DIOXIDE 28.5 mmol/L (21-32); CHLORIDE 101 mmol/L (98-107); COR CA(FOR HYPOALB) 9.2 mg/dL (8.5-10.1); COR NA(FOR HYPERGLY) 134 mmol/L (136-145); CREATININE 0.55 mg/dL (0.70-1.30); GLUCOSE 132 mg/dL (65-99); SODIUM 133 mmol/L (136-145); TOTAL PROTEIN 4.4 g/dL (6.4-8.2); eGFR NON BLACK RACES > 60 (>60)
[2024-02-25 05:18] LABS: POTASSIUM 2.7 mmol/L (3.5-5.1)
[2024-02-25] MEDS ORDERED: CONSULT PHARMACY - POTASSIUM & MAGNESIUM XX SCH (06:00)
[2024-02-25 06:21] LABS: ANISOCYTOSIS 1+; PLATELET MORPHOLOGY COMMENT NORMAL (NORMAL)
[2024-02-25] MEDS ORDERED: K-DUR TAB 20 MEQ PO SCH (09:00)
[2024-02-25] MEDS ORDERED: MAG-OX TAB PO SCH (09:00)
[2024-02-25] MEDS: NS + KCL 40 MEQ/L 1,000 ML with MAGNESIUM SULFATE 50% INJ VIAL 2 G IV SCH (10:15)
--- NOTE | 2024-02-25 10:18 | DR.PROGNOT ---
HOSPITAL PROGRESS NOTE Progress Note for Day of: Progress Note Date: 02/25/24 Chief Complaint Chief Complaint: Status post transverse colostomy which is functioning well today. Moderate abdominal pain around the incision, no nausea or vomiting. Potassium is 2.7, magnesium 1.4 and albumin 1.6. To start him on clear liquid, ambulate, DC Wick catheter and correct electrolyt e imbalance. Lovenox and same incentive spirometer. Awaiting final pathology report but patient could be discharged and have the home visiting nurse to help with his new colostomy care. Past Medical Family Social History Past Med/Fam/Surg Hx: No changes since H&P Allergies: Allergies No Known Drug Allergies Allergy (Verified 02/22/24 17:09) Review Of Systems Changes in ROS: see HPI Vital Signs Vital Signs: Vital Signs Temperature 97.9 F Pulse Rate 81 Respiratory Rate 23 Blood Pressure 107/56 O2 Sat by Pulse Oximetry 97 Physical Exam Oriented: Normal Respiratory: Normal Cardiovascular: Normal GI:Auscultation: Normal GI: Tenderness: RLQ and LLQ Skin: Normal Musculoskeletal: Normal Mood Description: Calm Speech Pattern: Clear Laboratory and Diagnostics 02/25/24 04:23 02/25/24 04:23 Labs: Laboratory WBC 7.1 X10^3/uL (3.6-10.0) 02/25/24 04:23 RBC 4.27 X10^6/uL (4.7-6.0) L 02/25/24 04:23 Hgb 12.4 g/dL (13.5-18.0) L D 02/25/24 04:23 Hct 37.0 % (42.0-54.0) L 02/25/24 04:23 MCV 86.6 fL (80.0-100.0) 02/25/24 04:23 MCH 29.2 pg (27.0-34.0) 02/25/24 04:23 MCHC 33.7 g/dL (33.0-35.0) 02/25/24 04:23 RDW 20.4 % (11.6-16.5) H 02/25/24 04:23 Plt Count 231 X10^3/uL (150.0-450.0) 02/25/24 04:23 Plt Count Comment Adequate (ADEQUATE) 02/25/24 04:23 MPV 8.2 fL (7.4-11.0) 02/25/24 04:23 Neut % (Auto) 69.6 % (42.0-75.0) 02/25/24 04:23 Lymph % (Auto) 21.5 % (21.0-51.0) 02/25/24 04:23 [place] % (Auto) 8.6 % (0.0-13.0) 02/25/24 04:23 Eos % (Auto) 0.0 % (0.9-2.9) L 02/25/24 04:23 Baso % (Auto) 0.3 % (0.2-1.0) 02/25/24 04:23 Neut # (Auto) 4.9 x10^3/uL (2.2-4.8) H 02/25/24 04:23 Lymph # (Auto) 1.5 X10^3/uL (1.3-2.9) 02/25/24 04:23 [place] # (Auto) 0.6 x10^3/uL (0.3-0.8) 02/25/24 04:23 Eos # (Auto) 0.0 x10^3/uL (0.0-0.2) 02/25/24 04:23 Baso # (Auto) 0.0 X10^3/uL (0.0-0.1) 02/25/24 04:23 Absolute Nucleated RBC 0.1 /100WBC 02/25/24 04:23 Plt Morphology Comment Normal (NORMAL) 02/25/24 04:23 RBC Morphology Abnormal (NORMAL) 02/25/24 04:23 Anisocytosis 1+ A 02/25/24 04:23 Sodium 133 mmol/L (136-145) L 02/25/24 04:23 Corrected Sodium 134 mmol/L (136-145) L 02/25/24 04:23 Potassium 2.7 mmol/L (3.5-5.1) L* 02/25/24 04:23 Chloride 101 mmol/L (98-107) 02/25/24 04:23 Carbon Dioxide 28.5 mmol/L (21-32) 02/25/24 04:23 BUN 5 mg/dL (7-18) L 02/25/24 04:23 Creatinine 0.55 mg/dL (0.70-1.30) L 02/25/24 04:23 Est GFR (MDRD) Af Amer > 60 (>60) 02/25/24 04:23 Est GFR (MDRD) Non-Af > 60 (>60) 02/25/24 04:23 Glucose 132 mg/dL (65-99) H 02/25/24 04:23 Calcium 7.3 mg/dL (8.5-10.1) L 02/25/24 04:23 Corrected Calcium 9.2 mg/dL (8.5-10.1) 02/25/24 04:23 Magnesium 1.4 mg/dL (2.0-2.9) L 02/25/24 04:23 Total Bilirubin 0.50 mg/dL (0.2-1.0) 02/25/24 04:23 AST 13 Units/L (15-37) L 02/25/24 04:23 ALT 11 Units/L (12-78) L 02/25/24 04:23 Alkaline Phosphatase 48 Units/L (46-116) 02/25/24 04:23 Ammonia < 10 umol/L (11-32) L 02/22/24 13:20 Creatine Kinase 25 Units/L (39-308) L 02/22/24 13:20 Total Protein 4.4 g/dL (6.4-8.2) L 02/25/24 04:23 Albumin 1.6 g/dL (3.4-5.0) L 02/25/24 04:23 Globulin 2.8 g/dL (2.5-4.5) 02/25/24 04:23 Albumin/Globulin Ratio 0.6 Ratio (1.1-2.1) L 02/25/24 04:23 Amylase 215 Units/L (25-115) H 02/22/24 13:20 Lipase 79 Units/L (16-77) H 02/22/24 13:20 Total PSA 4.30 ng/mL (0.13-4.0) H 02/22/24 13:20 TSH 3rd Generation 2.182 uIU/mL (0.358-3.74) 02/22/24 13:20 Specimen Type Clean catch urine 02/22/24 22:11 Urine Color Yellow (YELLOW) 02/22/24 22:11 Urine Appearance Clear (CLEAR) 02/22/24 22:11 Urine pH 6.5 (5.0 - 8.0) 02/22/24 22:11 Ur Specific [place] 1.010 (1.000-1.030) 02/22/24 22:11 Urine Protein 1+ (NEGATIVE) 02/22/24 22:11 Urine Glucose (UA) Negative (NEGATIVE) 02/22/24 22:11 Urine Ketones 3+ (NEGATIVE) 02/22/24 22:11 Urine Blood Negative (NEGATIVE) 02/22/24 22:11 Urine Nitrite Negative (NEGATIVE) 02/22/24 22:11 Urine Bilirubin Negative (NEGATIVE) 02/22/24 22:11 Urine Urobilinogen Normal (NORMAL) 02/22/24 22:11 Ur Leukocyte Esterase Negative (NEGATIVE) 02/22/24 22:11 Urine RBC 3-5 /HPF (0-3) A 02/22/24 22:11 Urine WBC 0-2 /HPF (0-5) 02/22/24 22:11 Ur Squamous Epith Cells Rare /HPF (NEGATIVE) 02/22/24 22:11 Amorphous Sediment Trace /HPF (NEGATIVE) 02/22/24 22:11 Urine Bacteria Trace /HPF (NEGATIVE) 02/22/24 22:11 Ur Culture Indicated? No/not indicated 02/22/24 22:11 Assessment and Plan 1: Postop transverse colostomy. On clear liquid and ambulate. Visiting nurse for colostomy care when patient is discharged. 2: Electrolyte imbalance as mentioned above to be corrected. Problem Patient Problems: Patient Problems Colonic mass (Acute) K63.89 Colonic obstruction (Acute) K56.609 Acute hypokalemia (Acute) E87.6
--- NOTE | 2024-02-25 10:39 | PCM.PROG ---
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 He is s/p resection, with now a transverse colon colostomy. This morning he is doing well. No acute events overnight. Labs/imaging: WBC 7.1, hemoglobin 12.4, platelets 231, sodium 134, potassium 2.7, creatinine 0.55, glucose 312, CEA pending. Pt is on clear liquid diet. OOB. Replete electrolytes per protocol. Otherwise continue current treatment plan. Continue closely monitor and follow-up labs/imaging. Past Medical Family Social History Past Med/Fam/Surg Hx: No changes since H&P Allergies: Allergies No Known Drug Allergies Allergy (Verified 02/22/24 17:09) Review of Systems ROS changes noted: see HPI Vital Signs and I&O's Vital Signs: Vital Signs Temperature 97.9 F Pulse Rate 81 Respiratory Rate 23 Blood Pressure 107/56 O2 Sat by Pulse Oximetry 97 Intake and Output: Intake & Output 02/22/24 02/23/24 02/24/24 02/25/24 23:59 23:59 23:59 23:59 Intake Total 1293 / 1293 2653 / 2653 6234 / 6234 923 / 923 Output Total 300 / 300 750 / 750 4459 / 4459 1200 / 1200 Balance 993 / 993 1903 / 1903 1775 / 1775 -277 / -277 Physical Exam Oriented: Normal Eyes: Normal Respiratory: Normal Cardiovascular: Normal Auscultation: Bowel Sounds: Normal Palpation: Normal Tenderness: Mild Skin: Normal Musculoskeletal: Normal Mood Description: Calm Speech Pattern: Clear Laboratory and Diagnostics 02/25/24 04:23 02/25/24 04:23 Labs: Laboratory WBC 7.1 X10^3/uL (3.6-10.0) 02/25/24 04:23 RBC 4.27 X10^6/uL (4.7-6.0) L 02/25/24 04:23 Hgb 12.4 g/dL (13.5-18.0) L D 02/25/24 04:23 Hct 37.0 % (42.0-54.0) L 02/25/24 04:23 MCV 86.6 fL (80.0-100.0) 02/25/24 04:23 MCH 29.2 pg (27.0-34.0) 02/25/24 04:23 MCHC 33.7 g/dL (33.0-35.0) 02/25/24 04:23 RDW 20.4 % (11.6-16.5) H 02/25/24 04:23 Plt Count 231 X10^3/uL (150.0-450.0) 02/25/24 04:23 Plt Count Comment Adequate (ADEQUATE) 02/25/24 04:23 MPV 8.2 fL (7.4-11.0) 02/25/24 04:23 Neut % (Auto) 69.6 % (42.0-75.0) 02/25/24 04:23 Lymph % (Auto) 21.5 % (21.0-51.0) 02/25/24 04:23 [place] % (Auto) 8.6 % (0.0-13.0) 02/25/24 04:23 Eos % (Auto) 0.0 % (0.9-2.9) L 02/25/24 04:23 Baso % (Auto) 0.3 % (0.2-1.0) 02/25/24 04:23 Neut # (Auto) 4.9 x10^3/uL (2.2-4.8) H 02/25/24 04:23 Lymph # (Auto) 1.5 X10^3/uL (1.3-2.9) 02/25/24 04:23 [place] # (Auto) 0.6 x10^3/uL (0.3-0.8) 02/25/24 04:23 Eos # (Auto) 0.0 x10^3/uL (0.0-0.2) 02/25/24 04:23 Baso # (Auto) 0.0 X10^3/uL (0.0-0.1) 02/25/24 04:23 Absolute Nucleated RBC 0.1 /100WBC 02/25/24 04:23 Plt Morphology Comment Normal (NORMAL) 02/25/24 04:23 RBC Morphology Abnormal (NORMAL) 02/25/24 04:23 Anisocytosis 1+ A 02/25/24 04:23 Sodium 133 mmol/L (136-145) L 02/25/24 04:23 Corrected Sodium 134 mmol/L (136-145) L 02/25/24 04:23 Potassium 2.7 mmol/L (3.5-5.1) L* 02/25/24 04:23 Chloride 101 mmol/L (98-107) 02/25/24 04:23 Carbon Dioxide 28.5 mmol/L (21-32) 02/25/24 04:23 BUN 5 mg/dL (7-18) L 02/25/24 04:23 Creatinine 0.55 mg/dL (0.70-1.30) L 02/25/24 04:23 Est GFR (MDRD) Af Amer > 60 (>60) 02/25/24 04:23 Est GFR (MDRD) Non-Af > 60 (>60) 02/25/24 04:23 Glucose 132 mg/dL (65-99) H 02/25/24 04:23 Calcium 7.3 mg/dL (8.5-10.1) L 02/25/24 04:23 Corrected Calcium 9.2 mg/dL (8.5-10.1) 02/25/24 04:23 Magnesium 1.4 mg/dL (2.0-2.9) L 02/25/24 04:23 Total Bilirubin 0.50 mg/dL (0.2-1.0) 02/25/24 04:23 AST 13 Units/L (15-37) L 02/25/24 04:23 ALT 11 Units/L (12-78) L 02/25/24 04:23 Alkaline Phosphatase 48 Units/L (46-116) 02/25/24 04:23 Ammonia < 10 umol/L (11-32) L 02/22/24 13:20 Creatine Kinase 25 Units/L (39-308) L 02/22/24 13:20 Total Protein 4.4 g/dL (6.4-8.2) L 02/25/24 04:23 Albumin 1.6 g/dL (3.4-5.0) L 02/25/24 04:23 Globulin 2.8 g/dL (2.5-4.5) 02/25/24 04:23 Albumin/Globulin Ratio 0.6 Ratio (1.1-2.1) L 02/25/24 04:23 Amylase 215 Units/L (25-115) H 02/22/24 13:20 Lipase 79 Units/L (16-77) H 02/22/24 13:20 Total PSA 4.30 ng/mL (0.13-4.0) H 02/22/24 13:20 TSH 3rd Generation 2.182 uIU/mL (0.358-3.74) 02/22/24 13:20 Specimen Type Clean catch urine 02/22/24 22:11 Urine Color Yellow (YELLOW) 02/22/24 22:11 Urine Appearance Clear (CLEAR) 02/22/24 22:11 Urine pH 6.5 (5.0 - 8.0) 02/22/24 22:11 Ur Specific [place] 1.010 (1.000-1.030) 02/22/24 22:11 Urine Protein 1+ (NEGATIVE) 02/22/24 22:11 Urine Glucose (UA) Negative (NEGATIVE) 02/22/24 22:11 Urine Ketones 3+ (NEGATIVE) 02/22/24 22:11 Urine Blood Negative (NEGATIVE) 02/22/24 22:11 Urine Nitrite Negative (NEGATIVE) 02/22/24 22:11 Urine Bilirubin Negative (NEGATIVE) 02/22/24 22:11 Urine Urobilinogen Normal (NORMAL) 02/22/24 22:11 Ur Leukocyte Esterase Negative (NEGATIVE) 02/22/24 22:11 Urine RBC 3-5 /HPF (0-3) A 02/22/24 22:11 Urine WBC 0-2 /HPF (0-5) 02/22/24 22:11 Ur Squamous Epith Cells Rare /HPF (NEGATIVE) 02/22/24 22:11 Amorphous Sediment Trace /HPF (NEGATIVE) 02/22/24 22:11 Urine Bacteria Trace /HPF (NEGATIVE) 02/22/24 22:11 Ur Culture Indicated? No/not indicated 02/22/24 22:11 Plan (1) Colonic mass: Status: Acute (2) Colonic obstruction: Status: Acute (3) Acute hypokalemia: Status: Acute
[2024-02-25] MEDS ORDERED: ANCEF VIAL 1 GRAM IV SCH (14:00)
[2024-02-25] MEDS: ANCEF VIAL 1 GRAM 1 G in NS 100 ML IV 100 ML IV SCH (14:14)
[2024-02-26 04:59] LABS: BASOPHILS # (AUTO) 0.1 X10^3/uL (0.0-0.1); BASOPHILS % (AUTO) 0.9 % (0.2-1.0); EOSINOPHILS # (AUTO) 0.1 x10^3/uL (0.0-0.2); HEMATOCRIT 37.5 % (42.0-54.0); HEMOGLOBIN 12.8 g/dL (13.5-18.0); LYMPHOCYTES # (AUTO) 1.6 X10^3/uL (1.3-2.9); LYMPHOCYTES % (AUTO) 26.4 % (21.0-51.0); MEAN CORPUSCULAR HEMOGLOBIN 29.5 pg (27.0-34.0); MEAN CORPUSCULAR HGB CONC 34.1 g/dL (33.0-35.0); MEAN CORPUSCULAR VOLUME 86.5 fL (80.0-100.0); MEAN PLATELET VOLUME 8.1 fL (7.4-11.0); MONOCYTES # (AUTO) 0.6 x10^3/uL (0.3-0.8); MONOCYTES % (AUTO) 9.3 % (0.0-13.0); NEUTROPHILS # (AUTO) 3.8 x10^3/uL (2.2-4.8); NEUTROPHILS % (AUTO) 62.4 % (42.0-75.0); PLATELET COUNT 252 X10^3/uL (150.0-450.0); RED BLOOD COUNT 4.33 X10^6/uL (4.7-6.0); RED CELL DISTRIBUTION WIDTH 20.6 % (11.6-16.5); WHITE BLOOD COUNT 6.1 X10^3/uL (3.6-10.0)
[2024-02-26 05:18] LABS: ALANINE AMINOTRANSFERASE 8 Units/L (12-78); ALBUMIN 1.5 g/dL (3.4-5.0); ALKALINE PHOSPHATASE 51 Units/L (46-116); ASPARTATE AMINO TRANSFERASE 12 Units/L (15-37); BLOOD UREA NITROGEN 1 mg/dL (7-18); CALCIUM 7.2 mg/dL (8.5-10.1); CARBON DIOXIDE 27.8 mmol/L (21-32); CHLORIDE 104 mmol/L (98-107); COR CA(FOR HYPOALB) 9.2 mg/dL (8.5-10.1); CREATININE 0.44 mg/dL (0.70-1.30); GLUCOSE 78 mg/dL (65-99); MAGNESIUM 1.8 mg/dL (2.0-2.9); SODIUM 135 mmol/L (136-145); TOTAL PROTEIN 4.3 g/dL (6.4-8.2); eGFR NON BLACK RACES > 60 (>60)
[2024-02-26 05:22] LABS: POTASSIUM 2.5 mmol/L (3.5-5.1)
[2024-02-26 05:42] LABS: ANISOCYTOSIS 1+; PLATELET MORPHOLOGY COMMENT NORMAL (NORMAL); TEAR DROP CELLS 1+
[2024-02-26] MEDS ORDERED: CONSULT PHARMACY - POTASSIUM & MAGNESIUM XX SCH ×2 (06:00→20:00)
[2024-02-26] MEDS: K-DUR TAB 20 MEQ PO SCH (08:33)
[2024-02-26] MEDS: MAGNESIUM SULFATE 1 GRAM/100 mL PREMIX 1 G/100 ML BAG IV SCH (08:33)
[2024-02-26] MEDS: MAGNESIUM SULFATE 1 GRAM/100 mL PREMIX 1 G/100 ML BAG IV ONE (08:41)
[2024-02-26] MEDS: K-DUR TAB 20 MEQ PO ONE ×2 (08:41→22:49)
[2024-02-26] MEDS: POTASSIUM CHL 60 MEQ/NS 0.45% 500 ML *CMPD 60 MEQ/500 ML BAG IV ONE (08:45)
[2024-02-26] MEDS ORDERED: K-RIDER 10 MEQ/100 ML WATER 10 MEQ/100 ML BAG IV SCH (09:00)
[2024-02-26] MEDS: NS 1,000 ML IV 1,000 ML IV SCH (09:00)
[2024-02-26] MEDS ORDERED: MAGNESIUM SULFATE 1 GRAM/100 mL PREMIX 1 G/100 ML BAG IV SCH (09:00)
[2024-02-26] MEDS ORDERED: NS 1,000 ML IV 1,000 ML with MAGNESIUM SULFATE 50% INJ VIAL 2 G IV SCH (09:00)
--- NOTE | 2024-02-26 10:30 | DR.PROGNOT ---
HOSPITAL PROGRESS NOTE Progress Note for Day of: Progress Note Date: 02/26/24 Chief Complaint Chief Complaint: Status post transverse colostomy day 2. functioning well today. Moderate abdominal pain around the incision, no nausea or vomiting. Potassium is 2.5, magnesium 1.8 and albumin 1.6. To start him on soft diet .., ambulate, Lovenox and same incentive spirometer. Awaiting final pathology report but patient could be discharged and have the home visiting nurse to help with his new colostomy care. Past Medical Family Social History Past Med/Fam/Surg Hx: No changes since H&P Allergies: Allergies No Known Drug Allergies Allergy (Verified 02/22/24 17:09) Review Of Systems Changes in ROS: see HPI Vital Signs Vital Signs: Vital Signs Temperature 97.9 F Temperature 98.0 F Pulse Rate 90 Pulse Rate 88 Pulse Rate 74 Respiratory Rate 19 Respiratory Rate 19 Respiratory Rate 16 Blood Pressure 119/76 Blood Pressure 105/71 O2 Sat by Pulse Oximetry 97 O2 Sat by Pulse Oximetry 97 O2 Sat by Pulse Oximetry 97 Physical Exam Oriented: Normal Eyes: Normal Respiratory: Normal Cardiovascular: Normal GI:Auscultation: Normal GI:Palpation: Normal GI: Tenderness: Mild Skin: Normal Musculoskeletal: Normal Mood Description: Calm Speech Pattern: Clear Laboratory and Diagnostics 02/26/24 04:29 02/26/24 04:29 Labs: Laboratory WBC 6.1 X10^3/uL (3.6-10.0) 02/26/24 04:29 RBC 4.33 X10^6/uL (4.7-6.0) L 02/26/24 04:29 Hgb 12.8 g/dL (13.5-18.0) L 02/26/24 04:29 Hct 37.5 % (42.0-54.0) L 02/26/24 04:29 MCV 86.5 fL (80.0-100.0) 02/26/24 04:29 MCH 29.5 pg (27.0-34.0) 02/26/24 04:29 MCHC 34.1 g/dL (33.0-35.0) 02/26/24 04:29 RDW 20.6 % (11.6-16.5) H 02/26/24 04:29 Plt Count 252 X10^3/uL (150.0-450.0) 02/26/24 04:29 Plt Count Comment Adequate (ADEQUATE) 02/26/24 04:29 MPV 8.1 fL (7.4-11.0) 02/26/24 04:29 Neut % (Auto) 62.4 % (42.0-75.0) 02/26/24 04:29 Lymph % (Auto) 26.4 % (21.0-51.0) 02/26/24 04:29 [place] % (Auto) 9.3 % (0.0-13.0) 02/26/24 04:29 Eos % (Auto) 1.0 % (0.9-2.9) 02/26/24 04: Baso % (Auto) 0.9 % (0.2-1.0) 02/26/24 04:29 Neut # (Auto) 3.8 x10^3/uL (2.2-4.8) 02/26/24 04:29 Lymph # (Auto) 1.6 X10^3/uL (1.3-2.9) 02/26/24 04:29 [place] # (Auto) 0.6 x10^3/uL (0.3-0.8) 02/26/24 04:29 Eos # (Auto) 0.1 x10^3/uL (0.0-0.2) 02/26/24 04:29 Baso # (Auto) 0.1 X10^3/uL (0.0-0.1) 02/26/24 04:29 Absolute Nucleated RBC 0.1 /100WBC 02/26/24 04:29 Plt Morphology Comment Normal (NORMAL) 02/26/24 04:29 RBC Morphology Abnormal (NORMAL) 02/26/24 04:29 Anisocytosis 1+ A 02/26/24 04:29 Tear Drop Cells 1+ A 02/26/24 04:29 Sodium 135 mmol/L (136-145) L 02/26/24 04:29 Corrected Sodium TNP 02/26/24 04:29 Potassium 2.5 mmol/L (3.5-5.1) L* 02/26/24 04:29 Chloride 104 mmol/L (98-107) 02/26/24 04:29 Carbon Dioxide 27.8 mmol/L (21-32) 02/26/24 04:29 BUN 1 mg/dL (7-18) L 02/26/24 04:29 Creatinine 0.44 mg/dL (0.70-1.30) L 02/26/24 04:29 Est GFR (MDRD) Af Amer > 60 (>60) 02/26/24 04:29 Est GFR (MDRD) Non-Af > 60 (>60) 02/26/24 04:29 Glucose 78 mg/dL (65-99) 02/26/24 04:29 Calcium 7.2 mg/dL (8.5-10.1) L 02/26/24 04:29 Corrected Calcium 9.2 mg/dL (8.5-10.1) 02/26/24 04:29 Magnesium 1.8 mg/dL (2.0-2.9) L 02/26/24 04:29 Total Bilirubin 0.60 mg/dL (0.2-1.0) 02/26/24 04:29 AST 12 Units/L (15-37) L 02/26/24 04:29 ALT 8 Units/L (12-78) L 02/26/24 04:29 Alkaline Phosphatase 51 Units/L (46-116) 02/26/24 04:29 Ammonia < 10 umol/L (11-32) L 02/22/24 13:20 Creatine Kinase 25 Units/L (39-308) L 02/22/24 13:20 Total Protein 4.3 g/dL (6.4-8.2) L 02/26/24 04:29 Albumin 1.5 g/dL (3.4-5.0) L 02/26/24 04:29 Globulin 2.8 g/dL (2.5-4.5) 02/26/24 04:29 Albumin/Globulin Ratio 0.5 Ratio (1.1-2.1) L 02/26/24 04:29 Amylase 215 Units/L (25-115) H 02/22/24 13:20 Lipase 79 Units/L (16-77) H 02/22/24 13:20 Total PSA 4.30 ng/mL (0.13-4.0) H 02/22/24 13:20 TSH 3rd Generation 2.182 uIU/mL (0.358-3.74) 02/22/24 13:20 Specimen Type Clean catch urine 02/22/24 22:11 Urine Color Yellow (YELLOW) 02/22/24 22:11 Urine Appearance Clear (CLEAR) 02/22/24 22:11 Urine pH 6.5 (5.0 - 8.0) 02/22/24 22:11 Ur Specific [place] 1.010 (1.000-1.030) 02/22/24 22:11 Urine Protein 1+ (NEGATIVE) 02/22/24 22:11 Urine Glucose (UA) Negative (NEGATIVE) 02/22/24 22:11 Urine Ketones 3+ (NEGATIVE) 02/22/24 22:11 Urine Blood Negative (NEGATIVE) 02/22/24 22:11 Urine Nitrite Negative (NEGATIVE) 02/22/24 22:11 Urine Bilirubin Negative (NEGATIVE) 02/22/24 22:11 Urine Urobilinogen Normal (NORMAL) 02/22/24 22:11 Ur Leukocyte Esterase Negative (NEGATIVE) 02/22/24 22:11 Urine RBC 3-5 /HPF (0-3) A 02/22/24 22:11 Urine WBC 0-2 /HPF (0-5) 02/22/24 22:11 Ur Squamous Epith Cells Rare /HPF (NEGATIVE) 02/22/24 22:11 Amorphous Sediment Trace /HPF (NEGATIVE) 02/22/24 22:11 Urine Bacteria Trace /HPF (NEGATIVE) 02/22/24 22:11 Ur Culture Indicated? No/not indicated 02/22/24 22:11 Assessment and Plan 1: Postop transverse colostomy. On soft diet . DVT prophylaxis . OOB. Visiting nurse 2: Electrolyte imbalance as mentioned above to be corrected. Problem Patient Problems: Patient Problems Colonic mass (Acute) K63.89 Colonic obstruction (Acute) K56.609 Acute hypokalemia (Acute) E87.6
[2024-02-26] MEDS ORDERED: NS + KCL 40 MEQ/L 1,000 ML with MAGNESIUM SULFATE 50% INJ VIAL 2 G IV SCH (17:00)
[2024-02-26 18:18] LABS: ALANINE AMINOTRANSFERASE 9 Units/L (12-78); ALBUMIN 1.8 g/dL (3.4-5.0); ALKALINE PHOSPHATASE 58 Units/L (46-116); ASPARTATE AMINO TRANSFERASE 13 Units/L (15-37); BLOOD UREA NITROGEN 2 mg/dL (7-18); CALCIUM 7.4 mg/dL (8.5-10.1); CHLORIDE 100 mmol/L (98-107); COR CA(FOR HYPOALB) 9.2 mg/dL (8.5-10.1); CREATININE 0.52 mg/dL (0.70-1.30); GLUCOSE 81 mg/dL (65-99); POTASSIUM 3.3 mmol/L (3.5-5.1); SODIUM 131 mmol/L (136-145); eGFR NON BLACK RACES > 60 (>60)
[2024-02-27 05:11] LABS: BASOPHILS # (AUTO) 0.1 X10^3/uL (0.0-0.1); HEMOGLOBIN 12.9 g/dL (13.5-18.0); LYMPHOCYTES # (AUTO) 1.8 X10^3/uL (1.3-2.9)
[2024-02-27 05:20] LABS: BASOPHILS % (AUTO) 0.9 % (0.2-1.0); EOSINOPHILS # (AUTO) 0.2 x10^3/uL (0.0-0.2); EOSINOPHILS % (AUTO) 2.9 % (0.9-2.9); HEMATOCRIT 38.7 % (42.0-54.0); LYMPHOCYTES % (AUTO) 32.7 % (21.0-51.0); MEAN CORPUSCULAR HGB CONC 33.2 g/dL (33.0-35.0); MEAN CORPUSCULAR VOLUME 87.1 fL (80.0-100.0); MEAN PLATELET VOLUME 8.3 fL (7.4-11.0); MONOCYTES # (AUTO) 0.5 x10^3/uL (0.3-0.8); MONOCYTES % (AUTO) 8.1 % (0.0-13.0); NEUTROPHILS # (AUTO) 3.1 x10^3/uL (2.2-4.8); NEUTROPHILS % (AUTO) 55.4 % (42.0-75.0); PLATELET COUNT 266 X10^3/uL (150.0-450.0); RED BLOOD COUNT 4.45 X10^6/uL (4.7-6.0); RED CELL DISTRIBUTION WIDTH 19.9 % (11.6-16.5); WHITE BLOOD COUNT 5.6 X10^3/uL (3.6-10.0)
[2024-02-27 05:27] LABS: ALANINE AMINOTRANSFERASE 7 Units/L (12-78); ALBUMIN 1.6 g/dL (3.4-5.0); ALKALINE PHOSPHATASE 52 Units/L (46-116); ASPARTATE AMINO TRANSFERASE 10 Units/L (15-37); BLOOD UREA NITROGEN 1 mg/dL (7-18); CALCIUM 7.4 mg/dL (8.5-10.1); CARBON DIOXIDE 25.8 mmol/L (21-32); CHLORIDE 102 mmol/L (98-107); COR CA(FOR HYPOALB) 9.3 mg/dL (8.5-10.1); CREATININE 0.43 mg/dL (0.70-1.30); GLUCOSE 71 mg/dL (65-99); MAGNESIUM 1.7 mg/dL (2.0-2.9); SODIUM 134 mmol/L (136-145); TOTAL PROTEIN 4.4 g/dL (6.4-8.2); eGFR NON BLACK RACES > 60 (>60)
[2024-02-27 05:35] LABS: POTASSIUM 2.8 mmol/L (3.5-5.1)
[2024-02-27] MEDS ORDERED: CONSULT PHARMACY - POTASSIUM & MAGNESIUM XX SCH (06:00)
[2024-02-27] MEDS: MAGNESIUM SULFATE 1 GRAM/100 mL PREMIX 1 G/100 ML BAG IV SCH (06:24)
[2024-02-27] MEDS: K-DUR TAB 20 MEQ PO SCH (06:24)
[2024-02-27 08:13] VITALS: BP 136/72; PULSE 81; RESP 19; TEMP 98.3; O2SAT 95
== END 2024-02-27 12:15 | disposition home health service (06) | DRG 330 ==
LOC: ER 12:07 → ICU 19:14
PROVIDERS: ADMIT Obstetrics & Gynecology Obstetrics; ATTEND Obstetrics & Gynecology Obstetrics
PROC: SIGMOID (2024-02-23 13:35)
DX: R94.31 Abnormal electrocardiogram [ECG] [EKG]; E83.42 Hypomagnesemia; D12.8 Benign neoplasm of rectum; R41.0 Disorientation, unspecified; E87.6 Hypokalemia; G89.18 Other acute postprocedural pain; R10.84 Generalized abdominal pain; K63.89 Other specified diseases of intestine; K56.690 Other partial intestinal obstruction; Z59.89 Other problems related to housing and economic circumstances; E87.1 Hypo-osmolality and hyponatremia; R97.20 Elevated prostate specific antigen [PSA]; R26.9 Unspecified abnormalities of gait and mobility; Z90.49 Acquired absence of other specified parts of digestive tract